=== PATIENT | male | born 1995 | race Caucasian/White ===

== ENCOUNTER → 2021-01-03 | Outpatient (CLI) | payer BC ==
[~2021-01-03] MED LIST: CEFP500T4 PO; DOXY100C2 PO
--- NOTE | 2021-01-03 08:46 | Diagnostic Imaging Report ---
INDICATION: LT SIDED ANTERIOR CHEST WALL PAIN X5-6 MONTHS. TECHNIQUE: Two view chest 8:42 AM CORRELATION STUDY: 03/30/2011 FINDINGS: The heart size, mediastinal configuration and pulmonary vasculature are within normal limits. The lungs are clear with no consolidating infiltrate. There is no significant pleural effusion or pneumothorax. Visualized osseous structures are unremarkable. IMPRESSION: 1. Negative for acute abnormality of the chest. Dictated by: Dictated on workstation # [id number]
== END ==
LOC: CARD 08:30
PROVIDERS: ATTEND Family Medicine
DX: I10 Essential (primary) hypertension (principal); R07.89 Other chest pain
CPT/HCPCS: 71046; 93005

== ENCOUNTER → 2021-01-24 | Outpatient (CLI) | payer BC ==
--- NOTE | 2021-01-24 08:58 | Diagnostic Imaging Report ---
CT CHEST WO TECHNIQUE: Multiple contiguous axial images were obtained through the chest without the use of intravenous contrast. All CT scans use one or more of the following dose optimizing techniques: automated exposure control, MA and/or KvP adjustment based on a patient size and exam type, or iterative reconstruction. INDICATION: Left anterior chest pain COMPARISON: None available. FINDINGS: Lungs and airway: No endoluminal nodule within the trachea or mainstem bronchi. No pulmonary mass or consolidation. No concerning pulmonary nodule. Pleura: No pleural effusion or pneumothorax. Heart and mediastinum: Thyroid is normal. No supraclavicular or axillary lymphadenopathy. No mediastinal or discrete hilar lymphadenopathy. Heart is normal in size without pericardial effusion. Normal caliber thoracic aorta. Upper abdomen: No abnormality in the upper abdomen. Musculoskeletal: No mass within the chest wall. No fracture of the costal cartilage or ribs. Scattered Schmorl's nodes within the lower thoracic spine. Sternum is normal. IMPRESSION: 1. No fracture of the ribs or costal cartilage. No chest wall mass. 2. No intrathoracic abnormality. Dictated by: Dictated on workstation # [id number]
== END ==
LOC: RAD 07:45
PROVIDERS: ATTEND Family Medicine
DX: R07.89 Other chest pain (principal)
CPT/HCPCS: 71250

== ENCOUNTER 2021-05-05 09:31 | Outpatient (CLI) | payer BC ==
[~2021-05-05] VITALS: Ht 185 cm; Wt 83.0 kg
[2021-05-05 09:15] VITALS: BP 139/74
[2021-05-05] MEDS ORDERED: diphenhydrAMINE 50 MG/ML INJ (BENADRYL) IV PRN (09:45)
[2021-05-05] MEDS ORDERED: CASIRIVIMAB/IMDEVIMAB 1,200 MG in NS (IVPB) 250 ML IV ONE (09:45)
[2021-05-05] MEDS ORDERED: EPINEPHrine INJECTION 1 MG/ML AMP IM PRN (09:45)
[2021-05-05 11:02] VITALS: BP 132/75
== END 2021-05-05 11:39 | disposition home or self-care (01) ==
LOC: MERGE 09:31 → INFUSION 09:31
PROVIDERS: ATTEND Physician Assistant
DX: Z23 Encounter for immunization (principal); U07.1 COVID-19

== ENCOUNTER → 2021-05-15 | Outpatient (CLI) | payer BC ==
--- NOTE | 2021-05-15 12:05 | Diagnostic Imaging Report ---
INDICATION: Post Covid infection. Cough. Chest pain. Comparison with CT chest of 01/24/2021. FINDINGS: PA and lateral view show the lungs to be well-aerated and clear. The heart is not enlarged. No evidence of pulmonary edema. No hilar adenopathy. No pneumothorax or pleural effusion. IMPRESSION: Normal PA and lateral chest. Dictated by: Dictated on workstation # [id number]
== END ==
LOC: RAD 09:36
PROVIDERS: ATTEND Family Medicine
DX: R07.89 Other chest pain (principal); R05 Cough; Z86.16 Personal history of COVID-19
CPT/HCPCS: 71046